=== PATIENT | male | born 1940 | race Caucasian/White ===

== ENCOUNTER 2016-12-27 09:56 | Inpatient (IN) ==
[2016-12-27] MEDS: NS 1,000 ML IV SCH ×2 (11:03→15:30)
[2016-12-27] MEDS: SALINE FLUSH 10ml SYRINGE IVF PRN (11:03)
--- NOTE | 2016-12-27 12:04 | Emergency Department Report ---
General Adult HPI - General Chief complaint: Weakness Stated complaint: fatigue, weak, soa Time Seen by Provider: 12/27/16 10:22 Source: patient, family Mode of arrival: wheelchair - History of Present Illness HPI narrative: 76 YO WM who presents to ER from Infusion Therapy for weakness, shortness of breath. Patient has known pancreatic cancer with mets to lungs and liver. His WBC has been very low and he is receiving infusions to boost WBC and hemoglobin/RBC. During his infusion this morning, he told nursing staff that he has been feeling short of air. Patient reports this is not new, that he has been experiencing shortness of breath for the last days to weeks. It does seem worse today. He denies nausea, vomiting or diarrhea. Onset (ago): day(s) Treatments prior to arrival: other (has home O2) - Related Data Home Medications Medication Instructions Recorded Confirmed Metoprolol Tartrate 50 mg PO BID #0 01/24/15 12/27/16 Omeprazole 40 mg PO DAILY #0 01/24/15 12/27/16 Multivit-Min/FA/Lycopen/Lutein 1 tab PO DAILY #0 11/23/15 12/27/16 [Centrum Silver Tablet] Levofloxacin [Levaquin] 500 mg PO DAILY 12/27/16 12/27/16 Potassium Chloride ER Tab [K-Dur] 20 meq PO DAILY 12/27/16 12/27/16 Prochlorperazine Tab [Compazine] 10 mg PO Q6H PRN 12/27/16 12/27/16 Previous Rx's Medication Instructions Recorded furosemide 40 mg tablet 40 mg PO Q12H #60 tab 12/25/16 Allergies Allergy/AdvReac Type Severity Reaction Status Date / Time No Known Drug Allergies Allergy Unknown Verified 12/27/16 10:18 Review of Systems Constitutional: Reports: chills, weakness, weight change Eyes: Denies: eye pain ENT: Denies: ear pain, hearing loss Cardiovascular: Reports: dyspnea on exertion, orthopnea. Denies: chest pain Gastrointestinal: Reports: abdominal pain (chronic due to pancreatic cancer with mets), nausea. Denies: hematemesis Hematological/Lymphatic: Reports: easy bruising Allergic/Immunologic: Denies: facial swelling, urticaria PFSH Patient Stated Medical History Other HEENT Yes: WEARS GLASSES Cardiac Arrhythmia Yes: A-FIB/FLUTTER Congestive Heart Failure Yes Hypertension Yes Chronic Obstructive Pulmonary Yes Disease (COPD) Cirrhosis Yes Gastroesophageal Reflux Yes Disease Osteoarthritis Yes Blood Transfusions Yes: PLATELET TRANSFUSION Chemotherapy Yes Other Yes: PORT A CATH, REMOVAL Clinic Medical History (Last Updated 12/29/16 @ 15:43 by Bennie Bey MD) A-fib (Chronic Medical) Arthritis (Chronic Medical) GERD (gastroesophageal reflux disease) (Chronic Medical) History of basal cell cancer (Resolved Medical) Lymphoma (Resolved Medical) pancreatic cancer - Social History Smoking status: Former smoker Physical Exam - Limitations Limitations: no limitations - General General appearance: alert, cachectic - Normal Exams: Head:: Normocephalic without trauma Eyes:: Pupils are PERRLA w/ EOMI, No scleral icterus Integumentary:: No rashes, hives Neurological:: Patient is alert, and oriented, cranial nerves, motor/sensory/ cerebellar, exams w/o gross deficits Psychiatric:: Patient exhibits, appropriate attention, emotion and affect - Respiratory Respiratory exam: Present: other (coarse breath sounds bilaterally. diminished breath sounds in the bases.). Absent: respiratory distress - Cardiovascular Cardiovascular exam: Present: tachycardia - Abdominal Exam Abdominal exam: Present: tenderness (diffusely tender to palpation) Abdominal tenderness: Present: diffuse - Rectal Exam Rectal exam: Present: deferred Course Vital Signs Blood Pressure 101/54 12/27/16 10:00 Temperature 97.1 F 12/30/16 04:00 Pulse Rate 86 12/30/16 07:15 Respiratory Rate 10 12/30/16 07:15 Blood Pressure 59/39 12/30/16 06:45 Pulse Oximetry 100 12/30/16 07:00 Medical Decision Making - Differential Diagnosis pneumonia, metatatic lung disease, pulmonary effusion, pulmonary edema, PE - Lab Data Result diagrams: 12/30/16 04:45 12/30/16 04:45 Lab Results 12/27/16 12/27/16 12/27/16 Range/Units 10:25 10:25 10:25 WBC 5.6 (4.5-11.0) T/MM3 Corrected WBC 4.8 (4.5-11.0) T/MM3 RBC 2.45 L (4.50-5.90) M/MM3 Hgb 8.6 L (13.5-17.5) GM/DL Hct 25.7 L (41-53) % MCV 104.9 H (80-100) UM3 MCH 35.1 H (26-34) UUG MCHC 33.5 (31-37) GM/DL RDW Std Deviation 91.1 H (36.9-50.2) FL Plt Count 28 L* (130-400) T/MM3 MPV Not performed Immature Gran % (Auto) Not performed Neut % (Auto) Not performed Lymph % (Auto) Not performed Merrick % (Auto) Not performed Eos % (Auto) Not performed Baso % (Auto) Not performed Neut # Not performed Lymph # Not performed Merrick # Not performed Baso # Not performed Abs Immat Gran (auto) Not performed Neutrophils % (Manual) 31.0 L (33-66) % Lymphocytes % (Manual) 35.0 (23-45) % Monocytes % (Manual) 30.0 H (0-9.0) % Metamyelocytes % 3.0 H (0-0) % Myelocytes % 1.0 H (0-0) % Neutrophils # (Manual) 1.5 L (1.8-7.7) T/MM3 Lymphocytes # (Manual) 1.7 (1-4.8) T/MM3 Monocytes # (Manual) 1.4 H (0-0.8) T/MM3 Metamyelocytes # 0.1 T/MM3 Myelocytes # 0.0 T/MM3 Nucleated RBCs 16 RBC Morph Comment 2+ poikilocytosis D-Dimer 747 H (0-230) NG/ML Turbidity < 20 (0-20) Sodium 137 (134-144) MEQ/L Potassium 4.6 (3.6-5) MEQ/L Chloride 104 (98-107) MEQ/L Carbon Dioxide 19 L (22-30) MEQ/L Anion Gap 14 (5-15) MEQ/L BUN 68.0 H* (9-20) MG/DL Creatinine 1.9 H D (0.8-1.5) MG/DL GFR Calculation 35 BUN/Creatinine Ratio 36 H (6-26) RATIO Glucose 109 (75-110) MG/DL Calculated Osmolality 285 H (261-280) MOSM/KG Calcium 8.5 (8.4-10.2) MG/DL Icterus Index < 2 (0-7) Troponin I 0.020 (0-0.12) ng/ml B-Natriuretic Peptide 01440 H (0-175) pg/mL Plasma Lactate 4.3 H* (0.6-2.2) MMOL/L Procalcitonin NG/ML Random Cortisol (3-20) ug/dL Specimen Hemolysis < 15 (0-25) 12/27/16 12/27/16 Range/Units 10:25 10:25 WBC (4.5-11.0) T/MM3 Corrected WBC (4.5-11.0) T/MM3 RBC (4.50-5.90) M/MM3 Hgb (13.5-17.5) GM/DL Hct (41-53) % MCV (80-100) UM3 MCH (26-34) UUG MCHC (31-37) GM/DL RDW Std Deviation (36.9-50.2) FL Plt Count (130-400) T/MM3 MPV Immature Gran % (Auto) Neut % (Auto) Lymph % (Auto) Merrick % (Auto) Eos % (Auto) Baso % (Auto) Neut # Lymph # Merrick # Baso # Abs Immat Gran (auto) Neutrophils % (Manual) (33-66) % Lymphocytes % (Manual) (23-45) % Monocytes % (Manual) (0-9.0) % Metamyelocytes % (0-0) % Myelocytes % (0-0) % Neutrophils # (Manual) (1.8-7.7) T/MM3 Lymphocytes # (Manual) (1-4.8) T/MM3 Monocytes # (Manual) (0-0.8) T/MM3 Metamyelocytes # T/MM3 Myelocytes # T/MM3 Nucleated RBCs RBC Morph Comment D-Dimer (0-230) NG/ML Turbidity (0-20) Sodium (134-144) MEQ/L Potassium (3.6-5) MEQ/L Chloride (98-107) MEQ/L Carbon Dioxide (22-30) MEQ/L Anion Gap (5-15) MEQ/L BUN (9-20) MG/DL Creatinine (0.8-1.5) MG/DL GFR Calculation BUN/Creatinine Ratio (6-26) RATIO Glucose (75-110) MG/DL Calculated Osmolality (261-280) MOSM/KG Calcium (8.4-10.2) MG/DL Icterus Index (0-7) Troponin I (0-0.12) ng/ml B-Natriuretic Peptide (0-175) pg/mL Plasma Lactate (0.6-2.2) MMOL/L Procalcitonin 1.04 NG/ML Random Cortisol 52 H (3-20) ug/dL Specimen Hemolysis (0-25) - Radiology Data Radiology results reviewed: Yes: I reviewed the patient's radiology results. CHEST X-RAY: LEFT PLEURAL EFFUSION WITH POSSIBLE CONSOLIDATION OR INFILTRATE - EKG Data EKG #1 Rate: tachycardia Rhythm: other (ectopic atrial tachycardia) Monroe/QRS: left axis deviation, RBBB When compared to previous EKG there are: previous EKG unavailable Disposition Clinical Impression: Sepsis Qualifiers: Sepsis type: sepsis due to unspecified organism Qualified Code(s): A41.9 - Sepsis, unspecified organism Disposition: 02 To [facility] [place] Care Condition: Time of Disposition: 12:45 - Seen By: physician
[2016-12-27] MEDS ORDERED: MORPHINE SULFATE 2 MG SYRINGE IVP ONE (12:28)
[2016-12-27] MEDS ORDERED: NS IV ONE (13:04)
[2016-12-27] MEDS ORDERED: CEFTAZIDIME IV ONE (13:04)
[2016-12-27] MEDS ORDERED: NS 1,000 ML IV SCH (13:15)
--- NOTE | 2016-12-27 15:28 | History & Physical Report ---
<Selena Barrientos V - Last Filed: 12/27/16 15:22> History of Present Illness Date: 12/27/16 Chief complaint: shortness of breath, weakness HPI: Patient is a 76-year-old male who presented to the emergency room from the infusion center today for acute evaluation of shortness of breath. Patient was receiving an outpatient injection and the [facility] infusion center this morning to "boost his blood counts". When he arrived. He was evaluated by the infusion nurse and noted to be more short of breath. He was then directed to the emergency room for acute evaluation. In the emergency room today. Further evaluation including laboratory studies and chest x-ray were obtained. White count was found to be normal at 5.6, RBCs 2.45, hemoglobin 8.6, hematocrit 25.7 , platelet count low at 28, neutrophils 31%. Sodium is 137, potassium 4.6, BUNs 68, creatinine 1.9. Troponin 0.020, proBNP 11,200. Venous lactate was found to be elevated at 4.3. Pro-calcitonin 1.04. D-dimer was elevated at 747. Chest x- ray did reveal a pleural effusion. He is afebrile in the emergency room. He is tachycardic up to the 120s. Blood pressure initially was 101/54, however, it did decrease down into the 80s systolic. Patient was given a bolus of IV fluids. Family reported that he had became had been more short of breath earlier in the week and he had been started on oxygen at home along with Lasix, potassium and Levaquin. Due to his acute worsening, shortness of breath, weakness with an elevated venous lactate, hospitalist services were contacted and accepted patient for inpatient admission for further evaluation and treatment. Patient has a known history of metastatic pancreatic cancer, stage IV. He is currently under his 5th cycle of chemotherapy. This was post to be the 2nd week out of 3 weeks, however, he had to stop after week 1. Due to his blood counts being low. He does report having swelling and erythema to the right upper extremity. He did undergo a venous Doppler on 12/16/16 as an outpatient that indicated no evidence of acute DVT in the right upper extremity, however, did reveal superficial thrombophlebitis involving the basilic vein Review of Systems All systems: reviewed and no additional remarkable complaints except as stated - Constitutional Constitutional: Present: fatigue, lethargy, malaise, weakness - Cardiovascular Cardiovascular: Present: dyspnea on exertion - Respiratory Respiratory: Present: cough, dyspnea, wheezing PFSH Past medical Hx Metastatic pancreatic cancer A-fib (Chronic Medical) Arthritis (Chronic Medical) GERD (gastroesophageal reflux disease) (Chronic Medical) History of basal cell cancer (Resolved Medical) Lymphoma (Resolved Medical) COPD Cirrhosis GERD Osteoarthritis History of blood transfusions "Radiated tonsils"as a child Surgical History: Left wrist surgery. Port-A-Cath placement. 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 Barraza Medications Home Medications Medication Instructions Recorded Confirmed Type Metoprolol Tartrate 50 mg PO BID #0 01/24/15 12/27/16 History Omeprazole 40 mg PO DAILY #0 01/24/15 12/27/16 History Multivit-Min/FA/Lycopen/Lutein 1 tab PO DAILY #0 11/23/15 12/27/16 History [Centrum Silver Tablet] Levofloxacin [Levaquin] 500 mg PO DAILY 12/27/16 12/27/16 History Potassium Chloride ER Tab [K-Dur] 20 meq PO DAILY 12/27/16 12/27/16 History Prochlorperazine Tab [Compazine] 10 mg PO Q6H PRN 12/27/16 12/27/16 History Allergies Allergy/AdvReac Type Severity Reaction Status Date / Time No Known Drug Allergies Allergy Unknown Verified 12/27/16 10:18 Exam Vital Signs: Temp Pulse Resp BP Pulse Ox 96.3 F L 104 H 20 101/54 97 12/27/16 10:01 12/27/16 10:01 12/27/16 10:01 12/27/16 10:01 12/27/16 10:50 Telemetry Rhythm: Sinus Tachycardia Height: 1.75 m Weight: 78.4 kg - Constitutional Present: mild distress - Routine HEENT Exam Head: Present: normocephalic, atraumatic Eye: Present: EOMI, PERRL - Routine Neck Exam Present: full ROM - Routine Respiratory Exam Present: distant breath sounds - Routine Cardiovascular Exam Present: RRR, S1, S2 - Routine Abdominal Exam Present: soft, normoactive bowel sounds - Routine Extremities Exam Comments: Flaking erythema skin to all 4 extremities - Routine Back/Spine/Pelvis Exam Back/Spine: Present: full ROM Results - Labs CBC & Chem 7: 12/27/16 10:25 12/27/16 10:25 Assessment and Plan (1) Sepsis Current visit: Yes Status: Acute Physicians of sepsis include the following- 1. Probable lung infection 2. Tachycardia-120s. 3. Elevated venous lactate- present on admission 4. Hypoxia (2) Respiratory insufficiency Current visit: Yes Status: Acute (3) Thrombocytopenia Current visit: Yes Status: Acute 12/27/16 15:47 present on admission- PLT 28 (4) MARIBELL (acute kidney injury) Current visit: Yes Status: Acute Present on admission- Needlemaker 1.9 (5) Elevated d-dimer Current visit: Yes Status: Acute acute elevated of D-dimer which may be related to cancer (6) Elevated lactic acid level Current visit: Yes Status: Acute (7) Pancreatic cancer Current visit: Yes Status: Acute (8) A-fib Current visit: Yes Status: Chronic (9) COPD (chronic obstructive pulmonary disease) Current visit: Yes Status: Chronic (10) GERD (gastroesophageal reflux disease) Current visit: Yes Status: Chronic (11) OA (osteoarthritis) Current visit: Yes Status: Chronic (12) Hx of lymphoma Current visit: Yes Status: Resolved (13) Hx of basal cell carcinoma Current visit: Yes Status: Resolved DVT Prophylaxis: SCD's Assessment and Plan: Patient to inpatient status to the ICU under the care of Dr. Tarango for sepsis, Hypoxia, Weakness with metastatic pancreatic cancer. Patient was started on Ceftazidime (Fortaz) for antimicrobial coverage while in the emergency room. Will change to Cefepime, Levaquind and Vancomycin IV. Blood cultures are pending. Will recheck a venous lactate at 1530 as per sepsis protocol. Patient cardiac telemetry as he has been tachycardic in the 120s. Only does report a change in patient's speech, and report that it is more slurred. Will obtain a CT scan of the brain to rule out hemorrhage, infarct or metastatic disease. SCD to bilateral lower ext for DVT prophylaxis. Acute D-dimer elevated may represent an acute thrombus. We are unable to obtain a CT of the chest with contrast. Given his increased renal function. Will order a VQ scan to be done on Thursday. Given patient's thrombocytopenia platelets of 28. It is contraindicated to start patient on Lovenox. PORT score- Mortality wrist indicator class V- 27% mortality risk Will discuss further orders and plan of care with attending, Dr. Tarango. Will recheck CBC and BMP tomorrow to follow blood counts renal function and electrolytes. Again, patient does verbalize his wish to be a full code and that order is written At time of discharge medical care will return to primary care provider, Dr. Lawler Hospital Course Summary Disclaimer: The visit summary below is not to be considered part of the above Progress Note. Hospital Course: 12/27/16- Admission Patient to inpatient status to the ICU under the care of Dr. Tarango for sepsis, Hypoxia, Weakness with metastatic pancreatic cancer. Patient was started on Ceftazidime (Fortaz) for antimicrobial coverage while in the emergency room. Will change to Cefepime, Levaquind and Vancomycin IV. Blood cultures are pending. Will recheck a venous lactate at 1530 as per sepsis protocol. Patient cardiac telemetry as he has been tachycardic in the 120s. Only does report a change in patient's speech, and report that it is more slurred. Will obtain a CT scan of the brain to rule out hemorrhage, infarct or metastatic disease. SCD to bilateral lower ext for DVT prophylaxis. Acute D-dimer elevated may represent an acute thrombus. We are unable to obtain a CT of the chest with contrast. Given his increased renal function. Will order a VQ scan to be done on Thursday. Given patient's thrombocytopenia platelets of 28. It is contraindicated to start patient on Lovenox. PORT score- Mortality wrist indicator class V- 27% mortality risk Will discuss further orders and plan of care with attending, Dr. Tarango. Will recheck CBC and BMP tomorrow to follow blood counts renal function and electrolytes. Again, patient does verbalize his wish to be a full code and that order is written At time of discharge medical care will return to primary care provider, Dr. Lawler <Erick Tarango - Last Filed: 12/27/16 16:38> History of Present Illness Date: 12/27/16 [facility] Patient Stated Medical History Other HEENT Yes: WEARS GLASSES Cardiac Arrhythmia Yes: A-FIB/FLUTTER Congestive Heart Failure Yes Hypertension Yes Chronic Obstructive Pulmonary Yes Disease (COPD) Cirrhosis Yes Gastroesophageal Reflux Yes Disease Other GI Yes: DIVERTICULITUS 2016 Osteoarthritis Yes Blood Transfusions Yes: PLATELET TRANSFUSION Chemotherapy Yes Other Yes: PORT A CATH, REMOVAL Clinic Medical History (Last Updated 12/27/16 @ 16:02 by Selena Barrientos APRN) A-fib (Chronic Medical) Arthritis (Chronic Medical) GERD (gastroesophageal reflux disease) (Chronic Medical) History of basal cell cancer (Resolved Medical) Lymphoma (Resolved Medical) Exam Vital Signs: Temp Pulse Resp BP Pulse Ox 96.3 F L 104 H 20 101/54 97 12/27/16 10:01 12/27/16 10:01 12/27/16 10:01 12/27/16 10:01 12/27/16 10:50 Height: 5 ft 9 in Weight: 77.8 kg Results - Labs CBC & Chem 7: 12/27/16 10:25 12/27/16 10:25 Assessment and Plan (1) Sepsis Current visit: Yes Status: Acute (2) Respiratory insufficiency Current visit: Yes Status: Acute (3) Thrombocytopenia Current visit: Yes Status: Acute (4) MARIBELL (acute kidney injury) Current visit: Yes Status: Acute (5) Elevated d-dimer Current visit: Yes Status: Acute (6) Elevated lactic acid level Current visit: Yes Status: Acute (7) Pancreatic cancer Current visit: Yes Status: Acute (8) Hx of lymphoma Current visit: Yes Status: Resolved (9) A-fib Current visit: Yes Status: Chronic (10) COPD (chronic obstructive pulmonary disease) Current visit: Yes Status: Chronic (11) OA (osteoarthritis) Current visit: Yes Status: Chronic (12) GERD (gastroesophageal reflux disease) Current visit: Yes Status: Chronic (13) Hx of basal cell carcinoma Current visit: Yes Status: Resolved Assessment and Plan: Above pt was seen and examined in the ED with Selena. Above noted, pt was apparently receiving neupogen and ? iron or Epogen ? had been noticed to have increasing cough and respiratory distress over the last week and was being given PO levaquin. He deteriorated and presented to the ED, where he developed hypotension requiring IV Fluids (bolus). His lactate is high, WBC has been low ( Not neutropenic today). He has been having poor oral intake for months and is very cachectic. Pt is FULL CODE. PE Cachectic NC/AT Bruise on his L orbit EOMI normal Mucosas dry Chest - tachycardic no murmurs, decreased air entry bilaterally\\ Abdomen - no ascites, no hepatomegaly Ext - Minimal edema Skin - very dry. Pt apparently has received steroids as part of his chemo treatment. Diagnosis - This is a 76 YO with Stage IV pancreatic cancer who was on his 3rd chemo cycle and developed pancytopenia with neutropenia, was placed on Neupogen and now appears to have a PNA with Sepsis. 1) Pneumonia in a immunocompromised host. - Change antibiotics to Vanco (with phamacy consult) + levaquin + Cefepime. - Duonebs. - O2 as needed. 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 He has a supercial thrombophlebitis on his arm, which is managed conservatively. Pt is too sick not to consider a IVC filter in case he had a DVT in his leg. V/Q scan is not available pt is hypotensive/tachycardic so can not transfer out now. D-dimer is high, which means nothing except we could not rule out a clot without further testing. 2) Stage IV pancreatic cancer. - Check brain to R/O brain mets. 3) Possible adrenal insufficiency, worsening hypotension. - Random cortisol ordered - Pt has bee on oral steoids as part of his chemo per family. - Added Hydrocortisone 50mg IV Q8H + Accuchecks. This may correct his hypotension. ] 4) Thrombocytopenia - Will recheck periodically - May need platelet transfusssion - Avoid NSAIDS, heparin, lovenox. - SCD's for DVT prevention. 5) ? of PE ? I discussed with Selena and I thought doing a V/Q scan would be a good idea. It pf does not have a PE, will also scan his legs - if there is DVT a IVC filter could be considered - prior correction of his PLT count. This is non urgent. 6) Advanced protein calorie malnutrition - Will start pt on Marinol, once his sepsis is stabilized, as pt may develop acute delirium from his infection that could be attributed to Marinol. 7) Remote H.O Of non hodgkins lympohma. 8) Global Ichtiosis. Will check TSH for completion. Hospital Course Summary Disclaimer: The visit summary below is not to be considered part of the above Progress Note.
[2016-12-27] MEDS ORDERED: PROCHLORPERAZINE 10 MG TABLET PO PRN (15:54)
[2016-12-27] MEDS: PANTOPRAZOLE 40 MG INJECTION IVP SCH (16:08)
[2016-12-27] MEDS ORDERED: LEVOFLOXACIN PB 750 MG/150 ML BAG IV SCH (16:15)
[2016-12-27] MEDS: HYDROCORTISONE SOD SUCC 100mg/2ml INJECTION IVP SCH (16:57)
[2016-12-27] MEDS: CEFEPIME 1 GM in NS 100 ML IV SCH ×2 (18:38→22:09)
[2016-12-28] MEDS: HYDROCORTISONE SOD SUCC 100mg/2ml INJECTION IVP SCH ×3 (01:02→16:28)
[2016-12-28] MEDS: CEFEPIME 1 GM in NS 100 ML IV SCH ×4 (01:03→16:27)
[2016-12-28] MEDS: NS 1,000 ML IV SCH ×4 (01:05→11:25)
--- NOTE | 2016-12-28 07:41 | Pharmacy Consult- Renal Dosing ---
Pharamcy Consul-Renal Dosing - Laboratory Information 12/28/16 03:33 BUN 69.0 H* Creatinine 1.9 H - Consult Information RENAL DOSING: Calculated creatinine clearance is around 35mL per minute. Adjusted levofloxacin to 750mg ivpb q48h and cefepime 1 gram ivpb q8h.
--- NOTE | 2016-12-28 08:17 | Pharmacy Consult-Antibiotics ---
Pharmacy Consult-Vancomycin - Laboratory Information WBC 10.4 T/MM3 (4.5-11.0) D 12/28/16 03:33 BUN 69.0 MG/DL (9-20) H* 12/28/16 03:33 Creatinine 1.9 MG/DL (0.8-1.5) H 12/28/16 03:33 Procalcitonin 1.04 NG/ML 12/27/16 10:25 - Consult Information VANCOMYCIN CONSULT: Dx: SEPSIS, PNEUMONIA Current Renal Fx: SCr = 1.9mg/dl. Will give Vancomycin 1,250mg IV q24hrs. Trough of 17 is expected. Will continue to monitor and adjust regimen to maintain therapeutic levels. Thank you.
[2016-12-28] MEDS: MULTI-VITAMIN PLAIN TABLET PO SCH (08:56)
[2016-12-28] MEDS: PANTOPRAZOLE 40 MG INJECTION IVP SCH (08:57)
[2016-12-28] MEDS ORDERED: TBO-FILGRASTIM 300mcg/0.5ml INJECTION SQ SCH (09:00)
--- NOTE | 2016-12-28 09:32 | CT Scan Report ---
Indication: slurred speech PROCEDURE: CT head/brain wo con: Encounter: Initial Comparison: None Technique: Axial CT images through the head were performed without contrast. Iterative Reconstruction dose reducing technique was utilized. FINDINGS: The ventricles are of normal size, shape, and contour for the patient's age. There are scattered areas of low attenuation in the white matter which most likely represent changes from chronic microvascular ischemia. The brainstem, cerebellum, and cerebral hemispheres otherwise have a normal morphology and CT attenuation. There is no evidence of midline displacement. No hemorrhage, signs of acute territorial stroke, mass effect, mass lesions, or edema is evident. The visualized portions of the skull base, midface, and calvarium demonstrate no abnormality. The paranasal sinuses are well aerated and free of significant disease. The tympanic and mastoid cavities appear normal. IMPRESSION: No acute intracranial abnormality or hemorrhage. There is a preliminary report by [facility]. .
[2016-12-28] MEDS ORDERED: DIGOXIN 500 MCG/2 ML INJECTION IVP ONE (11:29)
--- NOTE | 2016-12-28 11:33 | Progress Note ---
Subjective: Pt is sitting up in bed and looks better than yesterday. He is with O2, saturating well, not tachypneic. Remains tachycardic, and earlier with normal to low BP. Nursing reports decreased urine output for the night. Pt is willing to start eating but has no appetite. He is in better spirits today. Discussed findings with him and his family. I offered him a PICC for TPN but he states he wants to stay away from a PICC for now. Will see how he does on Marinol with his oral intake. Objective Vital signs: Temp Pulse Resp BP Pulse Ox 96.7 F L 121 H 32 H 96/51 100 12/27/16 20:30 12/28/16 11:00 12/28/16 11:00 12/28/16 11:00 12/28/16 11:00 Rhythm: Atrial Fibrillation with RVR Cardiac Ectopy: Occasional PVC's Weight: 81.9 kg - Constitutional Present: mild distress, cachectic - Routine HEENT Exam Head: Present: normocephalic, atraumatic Eye: Present: EOMI, PERRL Comments: L orbital ecchymosis - Routine Respiratory Exam Present: accessory muscle use, CTA bilaterally Comments: no dyspnea no cough. - Routine Cardiovascular Exam Present: irregularly irregular - Routine Abdominal Exam Present: soft, non distended, non tender - Routine Extremities Exam Present: edema. Absent: cyanosis - Routine Skin Exam Present: dry - Routine Neurological Exam Present: alert, oriented X3, CN II-XII intact - Routine Psychiatric Exam Present: normal affect, normal thought process, cooperative Results - Labs CBC & Chem 7: 12/28/16 03:33 12/28/16 03:33 Assessment and Plan (1) Sepsis Current visit: Yes Status: Acute Physicians of sepsis include the following- 1. Probable lung infection 2. Tachycardia-120s. 3. Elevated venous lactate- present on admission 4. Hypoxia (2) Respiratory insufficiency Current visit: Yes Status: Acute (3) Thrombocytopenia Current visit: Yes Status: Acute 12/27/16 15:47 present on admission- PLT 28 (4) MARIBELL (acute kidney injury) Current visit: Yes Status: Acute Present on admission- Security Sme 1.9 (5) Elevated d-dimer Current visit: Yes Status: Acute acute elevated of D-dimer which may be related to cancer (6) Elevated lactic acid level Current visit: Yes Status: Acute (7) Pancreatic cancer Current visit: Yes Status: Acute (8) Hx of lymphoma Current visit: Yes Status: Resolved (9) A-fib Current visit: Yes Status: Chronic (10) COPD (chronic obstructive pulmonary disease) Current visit: Yes Status: Chronic (11) OA (osteoarthritis) Current visit: Yes Status: Chronic (12) GERD (gastroesophageal reflux disease) Current visit: Yes Status: Chronic (13) Hx of basal cell carcinoma Current visit: Yes Status: Resolved Assessment and Plan: This is a pt with stage IV pancreatic cancer who was admitted yesterday via the ED with suspected PNA. He had been lymphopenic earlier this week and was being treated with levaquin for ? of PNA. He was receiving daily Neupogen and other shot for his blood (iron ? vs Epogen). On admission he was hypotensive, tachycardic and had a high lactic acid. He was admitted to the ICU, given IVF and stress doses of IV streroids and had better BP Control over night. His urine output remains poor. He has been having poor oral intake for months and is very cachectic. Diagnosis - 1) Stage IV pancreatic cancer. - Check brain without contrast did not show mets. - Continue supportive care. A) Pneumonia in a immunocompromised host. Pt was not Neutropenic on admission and is not neutropenic now. - Vanco (with phamacy consult) + levaquin + Cefepime (day # 2) - Duonebs and O2 as needed. - Continue Neupogen for 2 more days (Today is day 1) WBC count today is 10K B) Can not rule out a PE, but infection explains more symptoms - Due to presence of pancreatic cancer pt could have a PE but he is not a candidate for Lovenox due to thrombocytopenia so will defer further studies at this time as this would not manager of change. - He has a supercial thrombophlebitis on his arm, which is managed conservatively. - Pt is too sick not to consider a IVC filter in case he had a DVT in his leg. V/Q scan is not available in the weekends. D-dimer is high, which means nothing except we could not rule out a clot without further testing. - May consider studies for DVT/PE later if clinically indicated. D) Possible adrenal insufficiency, due to pt receiving steroids as part of his chemo (per family report) with worsening hypotension on admission -> improved after pt received Solu-Cortef. - Continue with Hydrocortisone 50mg IV Q8H + Accuchecks (12/27). 2) Renal failure possible Acute on chronic. - BUN/Cr today 69/1.9 - Observe serial tests as pt is rehydrated. 3) Atrial fibrillation with RVR. - Pt is on BB already - BP is marginally low - Will give Digoxin IV 0.5gm x 1 dose 4) Hematologic assessment a) Thrombocytopenia PLT count today a bit better at 33K. - Avoid NSAIDS, heparin, lovenox. - SCD's for DVT prevention. b) Anemia - H.H dropping as pt rehydrates, may need a transfussion soon. - Recheck this PM. 5) Advanced protein calorie malnutrition - Will start pt on Marinol, today at 2.5mg PO BID. - Pt refused a PICC earlier today. 6) Remote H.O Of non hodgkins lympohma. 7) Global Ichtiosis. Will check TSH for completion. 8) Code status - FULL. Sepsis Assessment - Evaluation Sepsis screening result: Severe Sepsis Risk Hospital Course Summary Disclaimer: The visit summary below is not to be considered part of the above Progress Note. Hospital Course: 12/27/16- Admission Patient to inpatient status to the ICU under the care of Dr. Tarango for sepsis, Hypoxia, Weakness with metastatic pancreatic cancer. Patient was started on Ceftazidime (Fortaz) for antimicrobial coverage while in the emergency room. Will change to Cefepime, Levaquind and Vancomycin IV. Blood cultures are pending. Will recheck a venous lactate at 1530 as per sepsis protocol. Patient cardiac telemetry as he has been tachycardic in the 120s. Only does report a change in patient's speech, and report that it is more slurred. Will obtain a CT scan of the brain to rule out hemorrhage, infarct or metastatic disease. SCD to bilateral lower ext for DVT prophylaxis. Acute D-dimer elevated may represent an acute thrombus. We are unable to obtain a CT of the chest with contrast. Given his increased renal function. Will order a VQ scan to be done on Thursday. Given patient's thrombocytopenia platelets of 28. It is contraindicated to start patient on Lovenox. PORT score- Mortality wrist indicator class V- 27% mortality risk Will discuss further orders and plan of care with attending, Dr. Tarango. Will recheck CBC and BMP tomorrow to follow blood counts renal function and electrolytes. Again, patient does verbalize his wish to be a full code and that order is written At time of discharge medical care will return to primary care provider, Dr. Lawler
[2016-12-28] MEDS: DRONABINOL 2.5 MG CAPSULE PO SCH ×2 (11:50→21:23)
--- NOTE | 2016-12-28 13:58 | XRay Report ---
INDICATION: DYSPNEA PROCEDURE: CHEST 2-VIEWS UPRIGHT (PA & LAT) Encounter: Initial COMPARISON: September 15, 2016 FINDINGS: New moderate left pleural effusion with consolidation of the left lower lobe. No pneumothorax. Trace right pleural effusion. Right lung shows some increased markings in the upper lobe. Heart size and mediastinal contours are stable. Pulmonary vascularity appears normal. Impression: New moderate left pleural effusion. .
[2016-12-28] MEDS: ALBUTEROL/IPRATROPIUM 2.5mg-0.5mg/3ml NEB IH SCH ×3 (14:55→19:11)
[2016-12-28] MEDS: ALBUMIN HUMAN IV SCH ×4 (16:26→21:20)
[2016-12-28] MEDS: EUCERIN CREAM 57gm TP SCH (16:28)
[2016-12-28] MEDS: ALBUTEROL 2.5mg/3ml (0.083%) NEB AEROSOL PRN (22:25)
[2016-12-28] MEDS: MORPHINE SULFATE 2 MG SYRINGE IVP PRN (22:27)
[2016-12-28] MEDS: SALINE FLUSH 10ml SYRINGE IVF PRN ×2 (22:28→22:36)
[2016-12-29] MEDS: CEFEPIME 1 GM in NS 100 ML IV SCH ×3 (01:05→21:18)
[2016-12-29] MEDS: HYDROCORTISONE SOD SUCC 100mg/2ml INJECTION IVP SCH ×3 (01:06→19:00)
[2016-12-29] MEDS: ALBUTEROL/IPRATROPIUM 2.5mg-0.5mg/3ml NEB IH SCH ×4 (07:07→19:45)
--- NOTE | 2016-12-29 07:59 | CT Scan Report ---
Indication: PNA, cancer ? of pericardial effusion PROCEDURE: CT chest wo con: Encounter: Initial Comparison: Chest x-ray dated December 27, 2016 Technique: Axial CT images were performed through the chest without intravenous contrast. Coronal and sagittal two-dimensional reformats. Automated Exposure Control and Iterative Reconstruction dose reducing techniques were utilized. Findings: Moderate bilateral pleural effusions with compressive atelectasis of the lower lobes. There is patchy groundglass type opacity in the right upper lobe along with paraseptal emphysema. No pneumothorax. No obvious pulmonary nodules or masses. The thyroid gland is unremarkable. Left axillary area surgical clips. No mediastinal adenopathy. Heart size is normal. Moderate pericardial effusion. Coronary artery disease. The upper abdomen shows perihepatic ascites. There is significant artifact from attenuation due to patient arm positioning. Bone windows show degenerative change and DISH in the thoracic spine. Impression: 1. Moderate bilateral pleural effusions and findings of moderate pulmonary edema. Moderate pericardial effusion. No obvious malignant process seen. Diagnostic and therapeutic thoracentesis may be helpful for further evaluation. 2. Ascites. There is a preliminary report by virtual radiologic. .
[2016-12-29] MEDS: PANTOPRAZOLE 40 MG INJECTION IVP SCH (08:06)
[2016-12-29] MEDS: MORPHINE SULFATE 2 MG SYRINGE IVP PRN ×4 (08:17→18:33)
[2016-12-29] MEDS: DRONABINOL 2.5 MG CAPSULE PO SCH (08:21)
[2016-12-29] MEDS ORDERED: ACETAMINOPHEN 325 MG TABLET PO ONE (08:31)
--- NOTE | 2016-12-29 09:05 | Progress Note ---
Subjective: Pt had an episode of SOB last night. His Saturations were normal. This was thought to be an anxiety attack. Pt was medicated with morphine and given a nebulizer and improved. CT chest yesterday showed large effussions, L>R. The L effussion is causing collapse of the lower lobe. Discussed today the need to tap , family and patient accept; pt needs a transfusion first, his Hgb is below 8 and pt is tachycardic. Platelets remain low, WBC is very high (Probably due to GM-CSF - Neupogen - Filgrastim) so this was held today. Pt overall looks improved from admission, renal output remains slow. 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 Objective Vital signs: Temp Pulse Resp BP Pulse Ox 97.4 F 120 H 26 H 144/79 H 96 12/28/16 15:00 12/29/16 06:00 12/29/16 07:08 12/29/16 06:00 12/29/16 07:08 Rhythm: Atrial Fibrillation with RVR Cardiac Ectopy: Occasional PVC's Weight: 81.9 kg - Constitutional Present: mild distress, thin, cachectic - Routine HEENT Exam Head: Present: normocephalic, atraumatic Eye: Present: EOMI, PERRL ENT: Present: mucous membranes dry - Routine Respiratory Exam Present: diminished air movement - Routine Cardiovascular Exam Present: irregular rhythm - Routine Abdominal Exam Present: soft, non tender, distended - Routine Extremities Exam Present: edema. Absent: cyanosis, clubbing Comments: Edema of the upper extremities is much worse since admission, most likely due to third spacing. - Routine Neurological Exam Present: alert, oriented X3 - Routine Psychiatric Exam Present: normal affect, cooperative, good insight, good judgment Results - Labs CBC & Chem 7: 12/29/16 04:12 12/29/16 04:12 Assessment and Plan (1) Sepsis Current visit: Yes Status: Acute Physicians of sepsis include the following- 1. Probable lung infection 2. Tachycardia-120s. 3. Elevated venous lactate- present on admission 4. Hypoxia (2) Respiratory insufficiency Current visit: Yes Status: Acute (3) Thrombocytopenia Current visit: Yes Status: Acute 12/27/16 15:47 present on admission- PLT 28 (4) MARIBELL (acute kidney injury) Current visit: Yes Status: Acute Present on admission- Assistant News Director 1.9 (5) Elevated d-dimer Current visit: Yes Status: Acute acute elevated of D-dimer which may be related to cancer (6) Elevated lactic acid level Current visit: Yes Status: Acute (7) Pancreatic cancer Current visit: Yes Status: Acute (8) Hx of lymphoma Current visit: Yes Status: Resolved (9) A-fib Current visit: Yes Status: Chronic (10) COPD (chronic obstructive pulmonary disease) Current visit: Yes Status: Chronic (11) OA (osteoarthritis) Current visit: Yes Status: Chronic (12) GERD (gastroesophageal reflux disease) Current visit: Yes Status: Chronic (13) Hx of basal cell carcinoma Current visit: Yes Status: Resolved Assessment and Plan: This is a pt with stage IV pancreatic cancer who was admitted via the ED with suspected PNA. He had been lymphopenic after his last chemo treatment (that had to be interrupted) and was being treated with levaquin for ? for suspected URI, and daily Neupogen and other shot for his blood (iron ? vs Epogen). On admission he was hypotensive, tachycardic and had a high lactic acid. He was admitted to the ICU, given IVF and stress doses of IV streroids. His urine output remains low. He has been having poor oral intake for months and is very cachectic, this is slightly better with marinol. Hgb dropped under 8, so pt will be given a transfussion today (12/29) of 2 U of PRBC. Will consult surgery for consideration of thoracenthesis (diagnostic and therapeutic) probably needs the L side tapped first, this to be done after pt is transfused with PRBC. Diagnosis - 1) Stage IV pancreatic cancer; CT Brain without contrast did not show mets. A) Pneumonia in a immunocompromised host, with large bilateral pleural effussions (L>R) Pt was not Neutropenic on admission and is not neutropenic now. His WBC is very high, probably due to good response to GM-CSF; this will be stopped today. - Vanco (with phamacy consult) + levaquin + Cefepime (day # 3) - Duonebs and O2 as needed. - Stop Neupogen today (Last dose 12/28) ` - Will transfuse RBC now, consult surgery for thoracenthesis (Dr Bey ) - Due to presence of pancreatic cancer pt could have a PE but he is not a candidate for Lovenox or heparin due to thrombocytopenia. - Check Doppler U/S of upper and lower extremities today (pt had a superficial clot on his R arm). If pt has a lower extremity DVT may consider an IVC filter. D) Possible adrenal insufficiency, on admission worsening hypotension - due to pt receiving steroids as part of his chemo (per family report). - Continue with Hydrocortisone 50mg IV Q8H + Accuchecks (12/27). 2) Renal failure possible Acute on chronic. - BUN/Cr stable, may improve after pt is transfused. (ordered). 3) Atrial fibrillation with RVR. - BB were held yesterday due to hypotension. - BP is better today - will reintroduce BB after pt is transfused. - Gave Digoxin IV 0.5gm x 1 dose (12/28) with no response. 4) Hematologic assessment a) Thrombocytopenia PLT count today a bit better at 33K. - Avoid NSAIDS, heparin, lovenox. - SCD's for DVT prevention. b) Anemia - will transfuse today. 5) Advanced protein calorie malnutrition - Will increase Marinol to 5mg PO BID. - Pt refused a PICC earlier today. 6) Remote H.O Of non hodgkins lympohma. 7) Global Ichtiosis. Will check TSH for completion. 8) Code status - FULL. Sepsis Assessment - Evaluation Sepsis screening result: Severe Sepsis Risk Hospital Course Summary Disclaimer: The visit summary below is not to be considered part of the above Progress Note. Hospital Course: 12/27/16- Admission Patient to inpatient status to the ICU under the care of Dr. Tarango for sepsis, Hypoxia, Weakness with metastatic pancreatic cancer. Patient was started on Ceftazidime (Fortaz) for antimicrobial coverage while in the emergency room. Will change to Cefepime, Levaquind and Vancomycin IV. Blood cultures are pending. Will recheck a venous lactate at 1530 as per sepsis protocol. Patient cardiac telemetry as he has been tachycardic in the 120s. Only does report a change in patient's speech, and report that it is more slurred. Will obtain a CT scan of the brain to rule out hemorrhage, infarct or metastatic disease. SCD to bilateral lower ext for DVT prophylaxis. Acute D-dimer elevated may represent an acute thrombus. We are unable to obtain a CT of the chest with contrast. Given his increased renal function. Will order a VQ scan to be done on Thursday. Given patient's thrombocytopenia platelets of 28. It is contraindicated to start patient on Lovenox. PORT score- Mortality wrist indicator class V- 27% mortality risk Will discuss further orders and plan of care with attending, Dr. Tarango. Will recheck CBC and BMP tomorrow to follow blood counts renal function and electrolytes. Again, patient does verbalize his wish to be a full code and that order is written At time of discharge medical care will return to primary care provider, Dr. Lawler
[2016-12-29] MEDS ORDERED: DRONABINOL 2.5 MG CAPSULE PO SCH (09:31)
--- NOTE | 2016-12-29 11:47 | Ultrasound Report ---
Indication: Lower extremity edema PROCEDURE: US venous doppler LE BI: Encounter: Initial Comparison: None Technique: Color Doppler duplex and grayscale sonographic imaging of both lower extremities was performed. Findings: There is no evidence for acute deep venous thrombosis in either thigh. Specifically, serial graded compression was performed from the inguinal ligament to the popliteal bifurcation, bilaterally, demonstrating appropriate compressibility of the deep venous system. In addition, color and pulsed Doppler demonstrate appropriate spontaneous flow, variation with respiration, and augmentation with calf compression. At the ankle, normal flow is identified in the posterior tibial veins; these vessels are also normal in caliber. Impression: No evidence of acute DVT in either lower limb. .
--- NOTE | 2016-12-29 11:49 | Ultrasound Report ---
Indication: Upper extremity swelling, evaluate for DVT PROCEDURE: US venous doppler UE BI: Encounter: Initial Comparison: None FINDINGS: There is no evidence for acute deep venous thrombosis in the either arm. The bilateral internal jugular, subclavian, axillary and paired brachial veins were evaluated; compression and augmentation were applied where possible. In addition, color and pulsed Doppler demonstrate appropriate spontaneous flow, cardiac pulsatility and variation with respiration. Subcutaneous edema in the both arms. IMPRESSION: No evidence of acute DVT in the either upper extremity. .
[2016-12-29 12:18] VITALS: BMI 26.6
--- NOTE | 2016-12-29 12:59 | Pharmacy Consult- Renal Dosing ---
Pharamcy Consul-Renal Dosing - Laboratory Information 12/28/16 12/28/16 12/29/16 03:33 22:35 04:12 BUN 69.0 H* 68.0 H* 70.0 H* Creatinine 1.9 H 2.0 H 2.0 H 12/29/16 11:43 BUN Creatinine Cancelled RENAL DOSING: Today's SCr = 2.0 mg/dl. Calculated CrCl = 34 ml/min. I will continue the Levaquin 750 mg iv every 48 hours and the Cefepime 1 g iv every 8 hours as currently ordered per Pharmacy Renal Monitoring and Adjustment Program. Thanks, Ventura Paige [facility].
[2016-12-29] MEDS: EUCERIN CREAM 57gm TP SCH (13:16)
--- NOTE | 2016-12-29 14:41 | Wound Care Progress Note ---
Wound Center Progress Note: At this time pt is in the process of dying and RN reports that the skin issue on coccyx is not a new issue.
--- NOTE | 2016-12-29 15:24 | General Surgery Consult Note ---
Consult date: 12/29/16 Attending Physician: Erick Tarango MD [facility] A-fib (Chronic Medical) Arthritis (Chronic Medical) GERD (gastroesophageal reflux disease) (Chronic Medical) History of basal cell cancer (Resolved Medical) Lymphoma (Resolved Medical) Medical History Updates: Change Lymphoma to Non-Hodgkin's lymphoma. Comment: Oncologist: Dr. Barraza. Metastatic pancreatic cancer with liver metastases. Comment: Oncologist: Dr. Barraza. 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 Add perforated sigmoid diverticulitis - 11/2015. Comment: Treated medically Surgical History: 1. Bilateral wrist surgery for tendon relocation - 1985. 2. EGD and colonoscopy - 09/2005. 3. Lymph node biopsy of the neck - 2011. 4. Port-A-Cath placement - 2005. 5. Port-A-Cath removal - 10/18/[address] Moeller. 6. Colonoscopy - 01/16/[address] Bey. 5 polyps removed but all were hyperplastic. Endoscopy revealed severe sigmoid diverticulosis and moderate internal and external hemorrhoids. 7. Right internal jugular PowerPort placement - 09/15/[address] Moeller. Family History Updates: Mother, : Breast cancer. Father, : Congestive heart failure. Brother, : Unknown cancer. 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 Current residence: Apartment/Private Home Medications Home Medications Medication Instructions Recorded Confirmed Type Metoprolol Tartrate 50 mg PO BID #0 01/24/15 12/27/16 History Omeprazole 40 mg PO DAILY #0 01/24/15 12/27/16 History Multivit-Min/FA/Lycopen/Lutein 1 tab PO DAILY #0 11/23/15 12/27/16 History [Centrum Silver Tablet] Levofloxacin [Levaquin] 500 mg PO DAILY 12/27/16 12/27/16 History Potassium Chloride ER Tab [K-Dur] 20 meq PO DAILY 12/27/16 12/27/16 History Prochlorperazine Tab [Compazine] 10 mg PO Q6H PRN 12/27/16 12/27/16 History Allergies Allergy/AdvReac Type Severity Reaction Status Date / Time No Known Drug Allergies Allergy Unknown Verified 12/27/16 10:18 Review of Systems 10-point ROS: negative except for HPI and the following: - General General: Present: fever (subjective), chills - Eyes/Ears/Nose/Throat Ear Nose Throat: Present: nosebleeds (with low platelet count) - Cardiovascular Cardiovascular: Present: edema/swelling - Respiratory Respiratory: Present: difficulty breathing, cough (at night), use of oxygen ( started night throught Dr. Lawler's office) - Gastrointestinal Gastrointestinal: Present: diarrhea - Musculoskeletal Additional comments: had fallen at home 13 days ago - Neurological Neurological: Present: muscle weakness - Psychiatric Psychiatric: Present: panic attacks (at hospital) - Hematologic/Lymphatic Hematologic/Lymphatic: Present: easy bruising - Vital Signs Last Vital Signs Temp 97.4 F 12/28/16 15:00 Pulse 120 H 12/29/16 12:45 Resp 24 12/29/16 13:39 BP 141/85 H 12/29/16 12:45 Pulse Ox 96 12/29/16 13:39 - Laboratory Result Diagrams: 12/29/16 14:05 12/29/16 04:12 - Normal Exam General: awake, alert Eyes: EOMI, sclera clear Neck: supple, midline trachea Abdominal: soft, no guarding, no rebound, non-tender Lymphatic: no cervical adenopathy Psychiatric: normal affect, normal mood Neurological: CN 2-12 grossly intact Additional Normal Findings: Extermities: No clubbing or cyanosis General Surgery Results - Results Labs: 12/29/16 14:05 12/29/16 11:43 (1) Sepsis Status: Acute Current visit: Yes (2) Respiratory insufficiency Status: Acute Current visit: Yes (3) Thrombocytopenia Status: Acute Current visit: Yes (4) MARIBELL (acute kidney injury) Status: Acute Current visit: Yes (5) Elevated d-dimer Status: Acute Current visit: Yes (6) Elevated lactic acid level Status: Acute Current visit: Yes (7) Pancreatic cancer Status: Acute Current visit: Yes (8) Hx of lymphoma Status: Resolved Current visit: Yes (9) A-fib Status: Chronic Current visit: Yes (10) COPD (chronic obstructive pulmonary disease) Status: Chronic Current visit: Yes (11) OA (osteoarthritis) Status: Chronic Current visit: Yes (12) GERD (gastroesophageal reflux disease) Status: Chronic Current visit: Yes (13) Hx of basal cell carcinoma Status: Resolved Current visit: Yes Hospital Course Summary Disclaimer: The visit summary below is not to be considered part of the above Progress Note. Hospital Course: 12/27/16- Admission Patient to inpatient status to the ICU under the care of Dr. Tarango for sepsis, Hypoxia, Weakness with metastatic pancreatic cancer. Patient was started on Ceftazidime (Fortaz) for antimicrobial coverage while in the emergency room. Will change to Cefepime, Levaquind and Vancomycin IV. Blood cultures are pending. Will recheck a venous lactate at 1530 as per sepsis protocol. Patient cardiac telemetry as he has been tachycardic in the 120s. Only does report a change in patient's speech, and report that it is more slurred. Will obtain a CT scan of the brain to rule out hemorrhage, infarct or metastatic disease. SCD to bilateral lower ext for DVT prophylaxis. Acute D-dimer elevated may represent an acute thrombus. We are unable to obtain a CT of the chest with contrast. Given his increased renal function. Will order a VQ scan to be done on Thursday. Given patient's thrombocytopenia platelets of 28. It is contraindicated to start patient on Lovenox. PORT score- Mortality wrist indicator class V- 27% mortality risk Will discuss further orders and plan of care with attending, Dr. Tarango. Will recheck CBC and BMP tomorrow to follow blood counts renal function and electrolytes. Again, patient does verbalize his wish to be a full code and that order is written At time of discharge medical care will return to primary care provider, Dr. Lawler Sepsis Assessment - Evaluation Sepsis screening result: Severe Sepsis Risk
[2016-12-29] MEDS ORDERED: LEVOFLOXACIN PB 750 MG/150 ML BAG IV SCH (16:00)
[2016-12-29] MEDS ORDERED: FUROSEMIDE 40 MG/4 ML INJECTION IVP SCH (16:00)
[2016-12-29] MEDS: MULTI-VITAMIN PLAIN TABLET PO SCH (17:09)
--- NOTE | 2016-12-29 18:27 | Progress Note ---
Objective Vital signs: Temperature 97.4 F 12/28/16 15:00 Pulse Rate 120 H 12/29/16 12:45 Respiratory Rate 20 12/29/16 17:16 Blood Pressure 141/85 H 12/29/16 12:45 Pulse Oximetry 97 12/29/16 17:16 Oxygen Delivery Method Nasal Cannula Oxygen Flow Rate 6 Height: 5 ft 9 in Weight: 81.647 kg Body Mass Index: 26.6 - Constitutional Present: mild distress, thin, cachectic Results - Labs CBC & Chem 7: 12/29/16 14:05 12/29/16 04:12 Assessment and Plan Assessment and Plan: This is a pt with stage IV pancreatic cancer who was admitted via the ED with suspected PNA. He had been lymphopenic after his last chemo treatment (that had to be interrupted) and was being treated with levaquin for ? for suspected URI, and daily Neupogen and other shot for his blood (iron ? vs Epogen). On admission he was hypotensive, tachycardic and had a high lactic acid. He was admitted to the ICU, given IVF and stress doses of IV streroids. His urine output remains low. He has been having poor oral intake for months and is very cachectic, this is slightly better with marinol. Hgb dropped under 8, so pt will be given a transfussion today (12/29) of 2 U of PRBC. Will consult surgery for consideration of thoracenthesis (diagnostic and therapeutic) probably needs the L side tapped first, this to be done after pt is transfused with PRBC. Diagnosis - 1) Stage IV pancreatic cancer; CT Brain without contrast did not show mets. A) Pneumonia in a immunocompromised host, with large bilateral pleural effussions (L>R) Pt was not Neutropenic on admission and is not neutropenic now. His WBC is very high, probably due to good response to GM-CSF; this will be stopped today. - Vanco (with phamacy consult) + levaquin + Cefepime (day # 3) - Duonebs and O2 as needed. - Stop Neupogen today (Last dose 12/28) ` - Will transfuse RBC now, consult surgery for thoracenthesis (Dr Bey ) - Due to presence of pancreatic cancer pt could have a PE but he is not a candidate for Lovenox or heparin due to thrombocytopenia. - Check Doppler U/S of upper and lower extremities today (pt had a superficial clot on his R arm). If pt has a lower extremity DVT may consider an IVC filter. D) Possible adrenal insufficiency, on admission worsening hypotension - due to pt receiving steroids as part of his chemo (per family report). - Continue with Hydrocortisone 50mg IV Q8H + Accuchecks (12/27). 2) Renal failure possible Acute on chronic. - BUN/Cr stable, may improve after pt is transfused. (ordered). 3) Atrial fibrillation with RVR. - BB were held yesterday due to hypotension. - BP is better today - will reintroduce BB after pt is transfused. - Gave Digoxin IV 0.5gm x 1 dose (12/28) with no response. 4) Hematologic assessment a) Thrombocytopenia PLT count today a bit better at 33K. - Avoid NSAIDS, heparin, lovenox. - SCD's for DVT prevention. b) Anemia - will transfuse today. 5) Advanced protein calorie malnutrition - Will increase Marinol to 5mg PO BID. - Pt refused a PICC earlier today. 6) Remote H.O Of non hodgkins lympohma. 7) Global Ichtiosis. Will check TSH for completion. 8) Code status - FULL. Sepsis Assessment - Evaluation Sepsis screening result: Severe Sepsis Risk Hospital Course Summary Disclaimer: The visit summary below is not to be considered part of the above Progress Note. Hospital Course: 12/27/16- Admission Patient to inpatient status to the ICU under the care of Dr. Tarango for sepsis, Hypoxia, Weakness with metastatic pancreatic cancer. Patient was started on Ceftazidime (Fortaz) for antimicrobial coverage while in the emergency room. Will change to Cefepime, Levaquind and Vancomycin IV. Blood cultures are pending. Will recheck a venous lactate at 1530 as per sepsis protocol. Patient cardiac telemetry as he has been tachycardic in the 120s. Only does report a change in patient's speech, and report that it is more slurred. Will obtain a CT scan of the brain to rule out hemorrhage, infarct or metastatic disease. SCD to bilateral lower ext for DVT prophylaxis. Acute D-dimer elevated may represent an acute thrombus. We are unable to obtain a CT of the chest with contrast. Given his increased renal function. Will order a VQ scan to be done on Thursday. Given patient's thrombocytopenia platelets of 28. It is contraindicated to start patient on Lovenox. PORT score- Mortality wrist indicator class V- 27% mortality risk Will discuss further orders and plan of care with attending, Dr. Tarango. Will recheck CBC and BMP tomorrow to follow blood counts renal function and electrolytes. Again, patient does verbalize his wish to be a full code and that order is written At time of discharge medical care will return to primary care provider, Dr. Lawler
[2016-12-29] MEDS ORDERED: FALL RISK - PHARMACY CONSULT MC PRN (22:56)
[2016-12-30] MEDS ORDERED: ALBUMIN HUMAN 12.5gm (25%) 50ml IV ONE (01:26)
[2016-12-30] MEDS: ALBUTEROL 2.5mg/3ml (0.083%) NEB AEROSOL PRN (01:47)
[2016-12-30] MEDS: HYDROCORTISONE SOD SUCC 100mg/2ml INJECTION IVP SCH (02:06)
[2016-12-30] MEDS: MORPHINE SULFATE 2 MG SYRINGE IVP PRN ×2 (03:13→05:33)
[2016-12-30] MEDS ORDERED: NS FLUSH BAG 500ml IV PRN (03:47)
[2016-12-30] MEDS: CEFEPIME 1 GM in NS 100 ML IV SCH (03:52)
[2016-12-30 04:23] VITALS: TEMP 97.1
[2016-12-30] MEDS ORDERED: NOREPINEPHRINE DRIP 4,000 MCG in NS 250ml 250 ML IV PRN (04:47)
[2016-12-30] MEDS ORDERED: MORPHINE SULFATE 2 MG SYRINGE IVP PRN (05:40)
[2016-12-30 06:13] VITALS: O2SAT 100
[2016-12-30 07:46] VITALS: BP 59/39; PULSE 86; RESP 10
--- NOTE | 2016-12-30 08:14 | XRay Report ---
Indication: S/P left thoracentesis PROCEDURE: XR chest 1V: Encounter: Initial Comparison: Chest CT dated December 28, 2016 Findings: Interval left thoracentesis with decreased left effusion. Trace pleural fluid remaining. No visible pneumothorax. Hazy bilateral airspace opacities are again noted. Right IJ port catheter. Heart size and mediastinal contours are stable. Impression: No visible pneumothorax following left thoracentesis. .
--- NOTE | 2016-12-30 14:33 | Consultation ---
DATE OF CONSULTATION 12/29/2016 CONSULTING PHYSICIAN Bennie Bey MD REQUESTING PHYSICIAN Dr. Tarango REASON FOR CONSULTATION Pleural effusions. IMPRESSION 1. Metastatic pancreatic cancer. 2. Bilateral pleural effusions - left greater than right. 3. Thrombocytopenia. PLAN 1. Given the pleural effusions with the larger effusion being on the left, I did recommend a diagnostic and therapeutic left thoracentesis to the patient after evaluation. I also discussed the plan with Dr. Barraza by telephone to be sure that he felt that this was appropriate management given his metastatic pancreatic cancer. 2. Since the procedure will be done with local only, I think it can be performed today at the bedside. 3. He will need the standard fluid analysis including cytology. HISTORY OF PRESENT ILLNESS Benny is known to my surgical practice from colonoscopy in January 2016. Since my last evaluation he has developed metastatic pancreatic cancer and is following with Dr. Barraza. He had a low white blood cell count due to chemotherapy and was receiving infusions of Granix. When the office was closed on Thursday he was going to the outpatient infusion center, but there was concern about his clinical condition and so he was transferred to the emergency department. Evaluation in the emergency department prompted admission to the CCU with a diagnosis of sepsis. The patient has had significant difficulties lately with exhaustion, trouble breathing, weakness, slurred speech, and problems with ambulation. His family had encouraged him to go to the hospital on multiple occasions but he had not come in. His family had noticed a severe decline for the last few weeks. He had only been drinking about one bottle of Ensure daily. The patient was on nasal cannula but was having trouble breathing, so a CT scan of the chest had been performed when chest x-ray had shown a left effusion and trace right effusion. Because of the size of the pleural effusions on CT scan, I was consulted to consider the feasibility of thoracentesis. ABNORMAL PHYSICAL EXAM HEART: Tachycardic with a regular rhythm. LUNGS: Decreased breath sounds at both posterior bases. He is clear to auscultation bilaterally on the anterior lung allen. EXTREMITIES: The patient has significant pitting edema of all four extremities. LABORATORY DATA Recent lab was reviewed. See the chart. His platelet count was low at 50. IMAGING CT scan of the chest was personally reviewed by me. Report was also reviewed. Chest x-ray from 12/27/2016 was also personally reviewed along with review of the report. Upper and lower venous studies were reviewed by report only. PATIENT EDUCATION I did discuss the procedure of thoracentesis with the patient, his , and his family members who were present in the room. The discussion included but was not limited to bleeding (increased due to his low platelet count), infection , injury to thoracic or abdominal structures, possible need for additional procedures, and possibility of a more invasive long-term catheter. Following discussion the patient did wish to proceed with thoracentesis today. Please see the electronic general surgery consultation note for the remaining sections of the consultation. SUSAN
--- NOTE | 2016-12-31 07:12 | Operative Note ---
DATE OF SURGERY 12/29/2016 SURGEON Bennie Bey MD PREOPERATIVE DIAGNOSIS 1. Metastatic pancreatic cancer. 2. Bilateral pleural effusions with left greater than right. POSTOPERATIVE DIAGNOSIS 1. Metastatic pancreatic cancer. 2. Bilateral pleural effusions with left greater than right. PROCEDURE Left ultrasound-guided thoracentesis. AMOUNT REMOVED 1250 ml ANESTHESIA Local. ASA CLASSIFICATION 4 INDICATIONS The patient is a 76-year-old male who has been diagnosed with metastatic pancreatic cancer. He is hospitalized for a diagnosis of sepsis and was noted to have bilateral pleural effusions with a larger effusion of the left. After evaluation today, diagnostic and therapeutic left ultrasound-guided thoracentesis was recommended. FINDINGS The fluid removed was pale yellow and clear with no evidence of infection. DESCRIPTION OF PROCEDURE After informed consent was obtained, the procedure was performed in the Surgery Care area with continuous monitoring. The patient's left chest was inspected with a sonoprobe and a site for thoracentesis was selected a few ribs superior to the posterior costovertebral angle slightly above the dome of the diaphragm. The skin was then prepped using chlorhexidine and draped in the usual sterile fashion. 1% lidocaine was used to anesthetize the skin, subcutaneous tissue, and intercostal muscle above the ribs. A catheterized needle was then inserted and the catheter advanced off of the tip of the needle. The needle was removed leaving the catheter in place. 1250 mL of fluid was evacuated with a syringe and sent to the laboratory for analysis. The catheter was quickly removed and the skin exit site covered with a sterile dressing. Postprocedure chest x-ray revealed no pneumothorax and improvement of the effusion. The patient tolerated the procedure well. SUSAN
--- NOTE | 2017-01-04 22:11 | Death Summary ---
ADMISSION DIAGNOSIS Sepsis--suspect lung infection. DISCHARGE DIAGNOSIS secondary to complications of sepsis. ASSOCIATED CONDITIONS AND COMPLICATIONS 1. Pneumonia. 2. Respiratory insufficiency. 3. Thrombocytopenia. 4. Acute kidney injury. 5. Elevated D-dimer. 6. Elevated lactic acid. 7. Pancreatic cancer. 8. Stage III chronic kidney disease. 9. Atrial fibrillation. 10. COPD. 11. Osteoarthritis. 12. GERD. 13. Severe protein-calorie malnutrition. 14. History of basal cell carcinoma. 15. History of lymphoma. CONSULTS Dr. Bey--Surgery. PROCEDURES 12/29/2016--left ultrasound-guided thoracentesis--Dr. Bey. CLINICAL RESUME Mr. Nieto is a 76-year-old gentleman who presents to [facility] Emergency Room from infusion center today secondary to acute shortness of breath and weakness. He has been receiving outpatient injections. He received an injection this morning to "boost his blood counts." Upon arrival to the infusion center, he was evaluated and nurse noted he was more short of breath. He was then directed to the emergency room for acute evaluation. While in emergency room his white count was found to be normal at 5.6. Hemoglobin was 8.6. 31% neutrophils were noted. Pro-BNP was elevated at 11, 200. Lactate was found to be quite elevated at 4.3, with procalcitonin 1.04. D -dimer was 747. Chest x-ray showed pleural effusion. He was afebrile in the emergency room, but he was tachycardic with a heart rate to the 120s. Initial blood pressure was 101/54. During this time in the emergency room, systolic blood pressure did decrease into the 80s. He was therefore given IV fluid boluses. Family members note he had been more short of breath earlier in the week and had been started on oxygen at home along with Lasix, potassium, and Levaquin. Due to his worsening symptoms of shortness of breath coupled with his elevated lactic acid, hospitalist service was notified. Patient was subsequently placed in inpatient admission status at [facility] for further evaluation and treatment. He does have known metastatic pancreatic cancer, which is stage IV. He is undergoing his fifth cycle of chemotherapy. He has had to have chemotherapy be held in the recent past secondary to low blood counts. For complete details of the H&P refer to that document. LABORATORY White blood count is 5.6, with 31% neutrophils. Hemoglobin is 8.6, with hematocrit 35.7, MCV 104.9, and platelets 28,000. D-dimer is elevated at 474. INR is 1.38. Serum sodium is 137, with potassium 4.6, chloride 104, CO2 19, BUN 68, with creatinine 1.9, GFR 35, and blood glucose 109. Troponin I is 0.020. Pro-BNP is 11,200. Lactate is 4.3, with procalcitonin 1.04. AST is 39 with ALT 31. UA is unremarkable. HOSPITAL COURSE The patient was placed in inpatient admission status at [facility] under the care of Dr. Tarango. He was given Fortaz for antimicrobial coverage in the emergency room, but we did switch to cefepime, Levaquin, and vancomycin for expanded lung coverage. Blood cultures were taken. SCDs were initiated for DVT prophylaxis. With his acute elevated D-dimer, there was concern about acute active thrombus but we were unable to do CT PE protocol secondary to his acute kidney injury and were unable to initiate Lovenox secondary to his thrombocytopenia. His PORT score was quite elevated in a patient with a 27% mortality risk. Supplemental oxygen was utilized. At time of presentation, he was FULL CODE as per his request. Unfortunately, his hospital course was one of low overall gains. We did consider PICC line placement for TPN but patient declined. As his appetite and oral drive were decreased, Marinol was started during the hospitalization. Venous study showed no evidence of deep venous thrombosis in either his upper or lower extremities. Ultimately Dr. Bey was consulted for thoracentesis to see if draining the fluid would help his respiratory status. Patient did consent and did tolerate the thoracentesis on the . However, no significant interval improvements were made. Lab was monitored, and we saw worsening renal status during the hospitalization as well as progressive elevation of his white count. Unfortunately despite thoracentesis, his respiratory status continued to decline. Despite simple mask , he did not feel he was having breathing improvements. Breathing treatments were initiated. Ultimately BiPAP was started on the . Patient was having difficulty tolerating BiPAP, not really wanting it. Telehospitalist was notified about patient's difficulty tolerating BiPAP. Blood pressure was decreasing. Lab was obtained. Levophed drip was initiated. Telehospitalist did discuss the case with family members. Early on the morning of 12/30/2016, family members did request no resuscitative measures. Indeed with the patient' s declining respiratory status and his difficulty tolerating BiPAP, intubation and mechanical ventilation were warranted. Family members did not feel this would be what he would wish. Additionally family members discussed about comfort care--they are requesting BiPAP and Levophed be discontinued. Telehospitalist was notified and orders were given. By 0720 hours patient did . He had no spontaneous movements or respiration. There was no apical heart or lung tones. Dr. Alva was notified due to the patient's passing. No resuscitative efforts were made as the family members were wishing comfort measures and no resuscitation. Cause of was thought to be secondary to his sepsis syndrome secondary to acute pneumonia. His contributing factor was metastatic stage IV pancreatic cancer. Manner of was natural. [facility]
== END 2016-12-30 07:30 | disposition expired | DRG 871 ==
LOC: ED 09:56 → CCU 13:48
PROVIDERS: ADMIT Internal Medicine; ATTEND Internal Medicine